=== PATIENT | female | born 1960 | race Caucasian/White ===

== ENCOUNTER 2019-08-20 16:36 | Emergency (ER) | payer OTHER ==
[~2019-08-20] VITALS: Ht 172.7 cm; Wt 63.5 kg
[~2019-08-20 16:36] MED LIST: AMOX TR-K CLV1 EAC1 PO; BACLOFEN10 MG PO; CELECOXIB200 MG PO; FLONASE ALLERG9.9 ML NAS; FLUOXETINE HCL40 MG PO; HYDROCODON-ACE1 EAC8 PO; LAMOTRIGINE100 MG PO; LORATADINE10 M2 PO; NORCO 7.5-3251 EACH PO; OMEPRAZOLE40 MG PO; QUDEXY XR100 MG PO; SYNTHROID137 MCG PO
[2019-08-20] MEDS ORDERED: LISINOPRIL10 MG PO (16:55)
[2019-08-20] MEDS ORDERED: KEPPRA500 MG PO (18:48)
--- NOTE | 2019-08-21 11:40 | EKG ---
[facility] [address] [place] [address] Signed Normal sinus rhythm Normal ECG When compared with ECG of 12-MAY-2019 11:09, Vent. rate has increased BY 36 BPM Confirmed by JAKUB PEDRO MD ([id number]) on 08/21/2019 11:40:19 AM Electronically Signed By: JAKUB PEDRO MD 08/21/19 1140 PATIENT NAME: CHICA MALDONADO Electrocardiogram DATE OF : 64 PHYSICIAN: JAKUB PEDRO MD REPORT #: [id number] REPORT IS CONFIDENTIAL AND NOT TO BE RELEASED WITHOUT AUTHORIZATION
== END 2019-08-20 19:15 | disposition home or self-care (01) ==
LOC: ED 16:36
DX: R56.9 Unspecified convulsions (principal); E03.9 Hypothyroidism, unspecified; F32.9 Major depressive disorder, single episode, unspecified; F41.9 Anxiety disorder, unspecified; K21.9 Gastro-esophageal reflux disease without esophagitis; G43.909 Migraine, unspecified, not intractable, without status migrainosus; Z88.6 Allergy status to analgesic agent; Z79.899 Other long term (current) drug therapy
CPT/HCPCS: 70450; 80053; 81001; 83735; 85025; 93005; 93010; 99285-25

== ENCOUNTER 2020-09-10 15:22 | Emergency (ER) | payer OTHER ==
[~2020-09-10] VITALS: Ht 172.7 cm; Wt 65.8 kg
[~2020-09-10 15:22] MED LIST changes: +KEPPRA500 MG PO; +LISINOPRIL10 MG PO
[2020-09-10] MEDS ORDERED: LEVOTHYROXINE112 MCG PO (15:51)
[2020-09-10] MEDS ORDERED: LORATADINE10 MG PO (15:53)
[2020-09-10] MEDS ORDERED: HYDROXYZINE HCL25 MG PO (21:02)
--- NOTE | 2020-09-14 08:47 | EKG ---
[facility] [address] [facility] [place] [address] Signed Normal sinus rhythm Normal ECG When compared with ECG of 20-AUG-2019 16:50, No significant change was found Confirmed by JAKUB PEDRO MD ([id number]) on 09/14/2020 8:47:18 AM Electronically Signed By: JAKUB PEDRO MD 09/14/20 0847 PATIENT NAME: CHICA MALDONADO Electrocardiogram DATE OF : 64 PHYSICIAN: JAKUB PEDRO MD REPORT #: [id number] REPORT IS CONFIDENTIAL AND NOT TO BE RELEASED WITHOUT AUTHORIZATION
== END 2020-09-10 21:50 | disposition home or self-care (01) ==
LOC: ED 15:22
DX: K21.9 Gastro-esophageal reflux disease without esophagitis (principal); F41.9 Anxiety disorder, unspecified; E03.9 Hypothyroidism, unspecified; Z88.1 Allergy status to other antibiotic agents; Z88.5 Allergy status to narcotic agent; Z79.899 Other long term (current) drug therapy
CPT/HCPCS: 71045; 80053; 81001; 83735; 84484; 85025; 93005; 93010; 96374; 96376; 99285-25; J2060; J7030

== ENCOUNTER 2020-10-17 20:04 | Emergency (ER) | payer OTHER ==
[~2020-10-17] VITALS: Ht 172.7 cm; Wt 65.8 kg
[~2020-10-17 20:04] MED LIST changes: +HYDROXYZINE HCL25 MG PO; +LEVOTHYROXINE112 MCG PO; +LORATADINE10 MG PO
[2020-10-17] MEDS ORDERED: ALPRAZOLAM0.5 MG PO (20:17)
--- NOTE | 2020-10-18 20:15 | EKG ---
[facility] [address] [facility] [place], [place] [address] Signed Normal sinus rhythm Normal ECG When compared with ECG of 10-SEP-2020 15:42, No significant change was found Confirmed by TIA HORNE DO ([id number]) on 10/18/2020 8:15:11 PM Electronically Signed By: TIA HORNE DO 10/18/202014 PATIENT NAME: CHICA MALDONADO Electrocardiogram DATE OF : 64 PHYSICIAN: TIA HORNE DO REPORT #: [id number] REPORT IS CONFIDENTIAL AND NOT TO BE RELEASED WITHOUT AUTHORIZATION
== END 2020-10-18 00:08 | disposition home or self-care (01) ==
LOC: ED 20:04
DX: I10 Essential (primary) hypertension (principal); F41.9 Anxiety disorder, unspecified; Z20.822 Contact with and (suspected) exposure to COVID-19; E03.9 Hypothyroidism, unspecified; G43.909 Migraine, unspecified, not intractable, without status migrainosus; K21.9 Gastro-esophageal reflux disease without esophagitis; Z88.1 Allergy status to other antibiotic agents; Z88.5 Allergy status to narcotic agent; Z79.899 Other long term (current) drug therapy
CPT/HCPCS: 70450; 80053; 81001; 83735; 84484; 85025; 93005; 93010; 96374; 99284-25; C9803; J2060; U0003

== ENCOUNTER 2022-02-14 10:20 | Inpatient (IN) | payer OTHER ==
[~2022-02-14] VITALS: Ht 172.7 cm; Wt 74.1 kg
[~2022-02-14 10:20] MED LIST changes: +ALPRAZOLAM0.5 MG PO
[2022-02-14] MEDS ORDERED: DIAZEPAM2 MG PO (10:46)
--- NOTE | 2022-02-14 17:05 | NUR ---
BEDSIDE REPORT RECIEVED, CARE OF PATIENT ASSUMED AT THIS TIME.
--- NOTE | 2022-02-14 17:45 | NUR ---
ADMISSION ASSESSMENTS COMPLETED. PT TAKEN OFF LEVOPHED DRIP UPON ARRIVAL AND PROPER FITTING BLOOD PRESSURE CUFF IN PLACE. PT BLOOD PRESSURES BETWEEN 90-130 SYSTOLICALLY. PTS HEART RATE DOWN INTO THE 40S UPON ARRIVAL. WITH REST HR BACK UP TO 65 IN A SINUS RHYTHM. PTS LUNGS ARE CLEAR AND DIM. SPO2 = 93% ON ROOM AIR. PT COMPLAINS OF SEVERE NECK PAIN AND A HEADACHE THAT IS SOMEWHAT RELIEVED WITH TYLENOL. DISTAL PULSES STRONG. BOWEL TONES ACTIVE. PT DENIES NAUSEA, PAIN OR DISCOMFORT. SKIN INTACT.
--- NOTE | 2022-02-14 18:12 | NUR ---
DR ROBLERO UPDATED ON PT ASSESSMENT FINDINGS. HEAD CT ORDERED AT THIS TIME. PT REMAINS OFF LEVOPHED DRIP WITH MAPS WNL. IV FLUIDS INFUSING. PT EATING DINNER AT THIS TIME.
--- NOTE | 2022-02-14 18:50 | NUR ---
PT DOWN TO CT AND BACK. WELL TOLERATED. PT NOW RETING IN BED. HEART RATE IN THE 70S. PT UP TO [facility] TO HAVE BOWEL MOVEMENT AND VOID. VOIDED 500 MLS AND HAD A MEDIUM SOFT BM. BACK IN BED. CALL LIGHT WITHIN REACH. WILL CONTINUE TO MONITOR.
--- NOTE | 2022-02-14 20:15 | NUR ---
RN IN ROOM TO ASSESS PT - PT AWAKE WATCHING TV WITH AT BEDSIDE. PT STATES HER HEADACHE HAS IMPROVED. SHE COMPLAINS OF GENERAL UNWELL FEELING. NON PRODUCTIVE COUGH NOTED, SPO2 STABLE ON ROOM AIR. NEURO ASSESSMENT NEGATIVE FOR ACUTE FINDINGS.
--- NOTE | 2022-02-14 21:30 | NUR ---
WARM BLANKET PROVIDED TO PT PER REQUEST - PT DENIES FURTHER NEEDS. CT RESULTS DISCUSSED WITH PT AND , EDUCATED ON MD ROUNDING PATTERN, ALL OTHER QUESTIONS ANSWERED.
--- NOTE | 2022-02-14 22:39 | NUR ---
RN IN ROOM TO ROUND ON PT - PT REPOSISTIONED TO ASSESS RR AND SPO2 ALARMS - QUICKLY WNL ONCE REPOSISITONED.
--- NOTE | 2022-02-14 23:29 | NUR ---
Assisted pt to bedside commode. Pt is unsteady with ambulation. Voided x1. Call light within reach.
--- NOTE | 2022-02-14 23:48 | NUR ---
NEW BAG OF IV FLUIDS HUNG. PT IS A/O, RESPIRATIONS EVEN AND REGULAR. RT AT BEDSIDE. CALL LIGHT WITHIN REACH.
--- NOTE | 2022-02-15 | NUR ---
RN IN ROOM TO ASSESS PT - LUNGS SOUNDS CLEAR THROUGHOUT AFTER NEB TX. PT REMAINS ON ROOM AIR WITH ADEQUATE SPO2. BP REMAINS SOFT WITHOUT SYMPTOMS. WILL CONTINUE TO MONITOR.
--- NOTE | 2022-02-15 01:11 | NUR ---
RN ROUNDING ON PT - RESTING IN BED ON RIGHT SIDE, RR EVEN AND UNLABORED. SPO2 95% ON RA. CALL LIGHT AT SIDE.
--- NOTE | 2022-02-15 01:42 | NUR ---
RN IN ROOM TO ASSIST PT TO BSC. STANDBY ASSIST FOR PIVOT TRANSFER. PT ASYMPTOMATIC WITH THIS DESPITE CURENT BP OF 91/53. 800ML VOID OF CLEAR STRAW URINE WITH ODOR. PT BACK TO BED WITH WARM BLANKETS.
--- NOTE | 2022-02-15 02:15 | NUR ---
RN IN ROOM TO ANSWER CALL LIGHT - PT REPORTS INABILITY TO STOP SHIVERING AFTER USING BSC EARLIER. PT STATES SHE DOES NOT FEEL COLD. AFEBRILE. ASSESSMENT OTHERWISE BENIGN. TYELENOL ADMINISTERED FOR 7/10 HEADACHE AND NECK ACHE. REPOSISTIONED PT TO RIGHT SIDE AND WARM BLANKETS PROVIDED. WILL CONTINUE TO MONITOR.
--- NOTE | 2022-02-15 03:20 | NUR ---
RN ROUNDING ON PT - PT RESTING ON SIDE WITH EYES CLOSED. CHILL/SHIVERING STOPPED. CALL LIGHT IN REACH. VS WNL.
--- NOTE | 2022-02-15 04:30 | NUR ---
RN IN ROOM TO ASSESS PT - LUNGS REMAIN CLEAR. BP REMAINS SOFT WITHOUT SYMPTOMS. PT UP TO BSC, PIVOT TRANSFER AND STANDBY ASSIST. PT REPORTS PAIN HAS IMPROVED AND CHILLS RESOLVED.
--- NOTE | 2022-02-15 06:19 | NUR ---
RN IN ROOM TO ADMINISTER SCHEDULED MEDICATION. PT WAKES EASILY. DENIES NEEDS AT THIS TIME. I/O RECORDED.
--- NOTE | 2022-02-15 07:01 | EKG ---
[facility] [address] [facility] [place] [address] Signed Normal sinus rhythm Nonspecific ST and T wave abnormality Abnormal ECG When compared with ECG of 17-OCT-2020 20:53, Non-specific change in ST segment in Inferior leads Non-specific change in ST segment in Anterolateral leads Nonspecific T wave abnormality now evident in Inferior leads Nonspecific T wave abnormality now evident in Anterolateral leads Confirmed by MAGGIE ROBLERO MD ([id number]) on 02/15/2022 7:01:19 AM Electronically Signed By: MAGGIE ROBLERO MD 02/15/22 0701 PATIENT NAME: CHICA MALDONADO Electrocardiogram DATE OF : 64 PHYSICIAN: MAGGIE ROBLERO MD REPORT #: [id number] REPORT IS CONFIDENTIAL AND NOT TO BE RELEASED WITHOUT AUTHORIZATION
--- NOTE | 2022-02-15 07:48 | NUR ---
DISCUSSED PLAN OF CARE WITH DR ROBLERO AND FAMILY AT THIS TIME. PLAN ESTABLISHED TO CHECK ORTHOSTATIC BLOOD PRESSURES ON PT. POSSIBILITY THAT PT WILL GO HOME LATER THIS MORNING.
--- NOTE | 2022-02-15 08:26 | NUR ---
ASSESSMENT COMPLETED. PT ALERT AND ORIENTED. ANSWERING ALL QUESTIONS APPROPRIATELY. HEART RATE INTHE 70S. ORTHOSTATIC BLOOD PRESSURES COMPLETED. PT NOT DIZZY WITH STANDING BUT REPORTS SOME WEKANESS. HEART RATE REMAINED WNL DID BLOOD PRESSURE. PT NOW EATING BREAKFAST. IV ABX INFUSING. CALL LIGHT WITHIN REACH. WILL CONTINUE TO MONITOR.
--- NOTE | 2022-02-15 08:44 | NUR ---
PT UP TO BSC. STANDY BY ASSIST ONLY REQUIRED. PT DENIES DIZZINESS OR DISCOMFORT. PT NOW SITTING AT SIDE OF BED. AT BEDSIDE. CALL LIGHT WITHIN REACH. WILL CONTINUE TO MONITOR
[2022-02-15] MEDS ORDERED: OSELTAMIVIR PHO30 MG PO (09:04)
[2022-02-15] MEDS ORDERED: CHOLESTYRAMINE P4 GM PO (09:05)
[2022-02-15] MEDS ORDERED: CEPHALEXIN500 MG PO (09:06)
--- NOTE | 2022-02-15 10:00 | NUR ---
PT RESTING IN ROOM. AT BEDSIDE. DENIES ANY NEEDS AT THIS TIME.
--- NOTE | 2022-02-15 12:00 | NUR ---
PHARMACIST BEHZAD IN ROOM TO GO OVER MEDICATION CHANGES AND PRESCRIPTIONS FOR DISCHARGE.
--- NOTE | 2022-02-15 12:15 | NUR ---
PT PROVIDED ALL DISCHARGE INSTRUCTIONS. AT BEDSIDE AT TIME OF DISCHARGE. ALL QUESTIONS ANSWERED. PT GIVEN A WHEELCHAIR RIDE OUT OF CCU TO AWAITING VEHICLE. ALL BELONGINGS WITH PT AT TIME OF DISCHARGE.
== END 2022-02-15 12:20 | disposition home or self-care (01) | DRG 871 ==
LOC: ED 10:20 → CCU 16:14
PROVIDERS: ADMIT Internal Medicine; ATTEND Internal Medicine
PROC: 3E03329 Introduction of Other Anti-infective into Peripheral Vein, Percutaneous Approach (ICD-10-PCS; principal; 2022-02-14)
PROC: 3E033XZ Introduction of Vasopressor into Peripheral Vein, Percutaneous Approach (ICD-10-PCS; 2022-02-14)
DX: A41.51 Sepsis due to Escherichia coli [E. coli] (principal); R65.21 Severe sepsis with septic shock; N39.0 Urinary tract infection, site not specified; Z20.822 Contact with and (suspected) exposure to COVID-19; A41.89 Other specified sepsis; G89.29 Other chronic pain; M54.9 Dorsalgia, unspecified; E03.9 Hypothyroidism, unspecified; F32.A Depression, unspecified; F41.9 Anxiety disorder, unspecified; K21.9 Gastro-esophageal reflux disease without esophagitis; G43.909 Migraine, unspecified, not intractable, without status migrainosus; Z90.710 Acquired absence of both cervix and uterus; Z98.51 Tubal ligation status; Z88.1 Allergy status to other antibiotic agents; Z88.6 Allergy status to analgesic agent; Z79.899 Other long term (current) drug therapy
CPT/HCPCS: 36415; 51701; 70450; 71045; 80048; 80053; 81001; 83605; 85025; 85610; 85730; 87088; 87186; 87502; 93005; 93010; 94640; 99285-25; A9270; C9803; J0696; J1650; J2405; J7030; J7121; U0003

== ENCOUNTER 2022-07-16 16:20 | Emergency (ER) | payer OTHER ==
[~2022-07-16] VITALS: Ht 172.7 cm; Wt 73.9 kg
[~2022-07-16 16:20] MED LIST changes: +CEPHALEXIN500 MG PO; +CHOLESTYRAMINE P4 GM PO; +DIAZEPAM2 MG PO; +OSELTAMIVIR PHO30 MG PO
--- OUTSIDE RECORDS SUMMARY | 2022-07-16 16:22 | XMS ---
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 [facility] VISIT COUNT (12 MO.) Trent Barr TOTAL 2 NOTE: Visits indicate total known visits. ED/UCC VISIT TRACKING (12 MO.) 07/16/2022 16:21 [facility] TYPE: Emergency COMPLAINT: - CHEST PAIN 02/14/2022 10:22 [facility] TYPE: Emergency COMPLAINT: - LOW B/P, FEVER, COUGH, HEADACHE, NECK/BACK PAIN INPATIENT VISIT TRACKING (12 MO.) 02/14/2022 16:14 [facility] TYPE: Critical Care COMPLAINT: - SEPSIS, INFLUENZA DIAGNOSES: - Acquired absence of both cervix and uterus - Acquired absence of both cervix and uterus - Allergy status to analgesic agent - Allergy status to analgesic agent - Allergy status to other antibiotic agents - Allergy status to other antibiotic agents - Anxiety disorder, unspecified - Anxiety disorder, unspecified - Contact with and (suspected) exposure to COVID-19 - Contact with and (suspected) exposure to COVID-19 - Depression, unspecified - Depression, unspecified - Dorsalgia, unspecified - Dorsalgia, unspecified - Gastro-esophageal reflux disease without esophagitis - Gastro-esophageal reflux disease without esophagitis - Hypotension, unspecified - Hypothyroidism, unspecified - Hypothyroidism, unspecified - Migraine, unspecified, not intractable, without status migrainosus - Migraine, unspecified, not intractable, without status migrainosus - Other chronic pain - Other chronic pain - Other intermediate accountant (current) drug therapy - Other intermediate (current) drug therapy - Other specified sepsis - Other specified sepsis - Sepsis due to Escherichia coli [E. coli] - Sepsis due to Escherichia coli [E. coli] - Sepsis, unspecified organism - Severe sepsis with septic shock - Tubal ligation status - Tubal ligation status - Urinary tract infection, site not specified - Urinary tract infection, site not specified [email or web address]
[2022-07-16] MEDS ORDERED: LOMOTIL TABLET1 EACH PO (18:38)
[2022-07-16 19:31] VITALS: BP 125/61
--- NOTE | 2022-07-17 21:34 | EKG ---
[facility] [address] [facility] [place] [address] Signed Normal sinus rhythm Normal ECG When compared with ECG of 14-FEB-2022 11:09, Non-specific change in ST segment in Inferior leads Non-specific change in ST segment in Anterolateral leads Nonspecific T wave abnormality no longer evident in Inferior leads Nonspecific T wave abnormality no longer evident in Anterolateral leads Confirmed by MAGGIE ROBLERO MD ([id number]) on 07/17/2022 9:33:49 PM Electronically Signed By: MAGGIE ROBLERO MD 07/17/22 2134 PATIENT NAME: CHICA MALDONADO Electrocardiogram DATE OF : 64 PHYSICIAN: MAGGIE ROBLERO MD REPORT #: [id number] REPORT IS CONFIDENTIAL AND NOT TO BE RELEASED WITHOUT AUTHORIZATION
== END 2022-07-16 19:37 | disposition home or self-care (01) ==
LOC: ED 16:20
DX: R07.9 Chest pain, unspecified (principal); R19.7 Diarrhea, unspecified; R63.4 Abnormal weight loss; E03.9 Hypothyroidism, unspecified; G43.909 Migraine, unspecified, not intractable, without status migrainosus; Z88.5 Allergy status to narcotic agent; Z88.1 Allergy status to other antibiotic agents; Z79.899 Other long term (current) drug therapy
CPT/HCPCS: 36415; 71045; 72040; 72070; 80053; 81001; 83735; 84484; 85025; 87088; 93005; 93010; 99285-25; J7030

== ENCOUNTER 2023-02-19 07:05 | Day surgery (SDC) | payer OTHER ==
[2023-02-12 16:41] VITALS: BP 109/65
[~2023-02-19] VITALS: Ht 172.7 cm; Wt 56.0 kg
[~2023-02-19 07:05] MED LIST changes: +LOMOTIL TABLET1 EACH PO
[2023-02-19 07:40] VITALS: BP 105/63
[2023-02-19 09:14] VITALS: BP 108/53
--- NOTE | 2023-02-19 09:26 | NUR ---
02/19/23 0926 Jennifer Rico 4088 PT ARRIVED TO PACU ON 6L VIA MASK, PT WAKES EASILY AND IS REORIENTED TO PACU. PT DENIES PAIN AND NAUSEA. PT ENCOURAGED TO PASS GAS. 0900 O2 REMOVED. PLAN OF CARE DISCUSSED. 0915 HOB INCREASED AND PT SIPPING WATER WITH NO CONCERNS. VSS. 0925 DC INSTRUCTIONS GIVEN AND AT BEDSIDE HELPING PT DRESS. ALL QUESTIONS ANSWERED.
--- NOTE | 2023-02-19 11:01 | OR ---
[facility] [place] [facility] [address] [place], [place] [address] Signed DATE OF OPERATION: 02/19/2023 SURGEON: Shoshana Moore MD PREOPERATIVE DIAGNOSES: 1. Screening. 2. Irritable bowel syndrome with diarrhea. 3. Sister with Crohn disease. 4. Internal and external hemorrhoids. POSTOPERATIVE DIAGNOSES: 1. Moderate internal and external hemorrhoids. 2. Minimal sigmoid diverticulosis. PROCEDURE: Colonoscopy without biopsy. ESTIMATED BLOOD LOSS: None. INDICATIONS: Stacie is a 63-year-old female, asked to see me for a followup screening colonoscopy. She had a stroke a few years ago. It has affected left side of her body. She has had a dilated right pupil for many years. She told me that is nothing new. She describes irritable bowel syndrome back to her teenagers with diarrhea. She told me her sister has Crohn disease. I helped Stacie with her colonoscopy in 2011 at the age of 51. She had internal and external hemorrhoids. There was no Crohn disease. She had a CT scan too, that did not reveal any Crohn disease. In 2017, she had gone to see Dr. Gemma Meza for upper endoscopy at the age of 56. Again, she was having generalized abdominal pain and diarrhea. She was said to have a small hiatal hernia with a little mild gastritis. She manages that with Imodium and a little cholestyramine. She always comes with her , particularly since her stroke. She tells me there is no family history of colon cancer or polyps. In the office, I gave them a pamphlet on colonoscopy. We reviewed the nature of the test. There is risk including, but not limited to gas bloating, crampy abdominal pain, bleeding, perforation requiring surgery, and missed diagnosis. She also understands the need for monitored anesthesia care given her stroke under basically nonfunctioning left upper extremity. She had expressed understanding and wished to proceed. PROCEDURE IN DETAIL: Electronically Signed By: SHOSHANA MOORE MD 02/19/23 1101 PATIENT NAME: CHICA MALDONADO OPERATIVE REPORT DATE OF : 64 REPORT #: [id number] PHYSICIAN: SHOSHANA MOORE MD PCP: PAYAL DELCID PA-C REPORT IS CONFIDENTIAL AND NOT TO BE RELEASED WITHOUT AUTHORIZATION [facility] [place] [facility] [address] [place], [place] [address] Signed Stacie was taken into our endoscopy suite and placed in the left lateral decubitus position. She was given monitored anesthesia care with propofol infusion per our nurse machine tool mechanic. A digital rectal exam was performed and once again, she has small circumferential external hemorrhoids. She has good sphincter tone. There are no masses. The adult colonoscope was introduced and advanced all the way around into the cecum under direct visualization of camera without difficulty. Her prep was quite good. We could easily see the appendiceal orifice and ileocecal valve. The scope was then slowly withdrawn. We thought we saw just a few tiny diverticula in the sigmoid colon. There were no polyps. The rectum was unremarkable. Upon retroflexion of scope, she once again has moderate internal hemorrhoid columns. After this, the gas was suctioned out. The colonoscope removed. Stacie tolerated the procedure quite well. RECOMMENDATIONS: Stacie can return in 10 years for repeat screening colonoscopy so long as her health holds up. Shoshana Moore MD ALB/MODL /[id number] cc: Payal Moore MD Copies: SHOSHANA MOORE MD ~ Electronically Signed By: SHOSHANA MOORE MD 02/19/23 1101 PATIENT NAME: CHICA MALDONADO OPERATIVE REPORT DATE OF : 64 REPORT #: [id number] PHYSICIAN: SHOSHANA MOORE MD PCP: PAYAL DELCID PA-C REPORT IS CONFIDENTIAL AND NOT TO BE RELEASED WITHOUT AUTHORIZATION
== END 2023-02-19 09:33 | disposition home or self-care (01) ==
LOC: DS 07:05 → OPS 07:05 → DS 08:15 → OPS 09:33
PROVIDERS: ATTEND Colon & Rectal Surgery
PROC: 0DJD8ZZ Inspection of Lower Intestinal Tract, Via Natural or Artificial Opening Endoscopic (ICD-10-PCS; principal; 2023-02-19 08:15)
DX: Z12.11 Encounter for screening for malignant neoplasm of colon (principal); K57.30 Diverticulosis of large intestine without perforation or abscess without bleeding; K64.4 Residual hemorrhoidal skin tags; K64.8 Other hemorrhoids; K58.0 Irritable bowel syndrome with diarrhea; F41.9 Anxiety disorder, unspecified; F32.9 Major depressive disorder, single episode, unspecified; I12.9 Hypertensive chronic kidney disease with stage 1 through stage 4 chronic kidney disease, or unspecified chronic kidney disease; N18.31 Chronic kidney disease, stage 3a; K21.9 Gastro-esophageal reflux disease without esophagitis; E78.5 Hyperlipidemia, unspecified; E03.9 Hypothyroidism, unspecified; Z98.51 Tubal ligation status; Z90.710 Acquired absence of both cervix and uterus; Z90.49 Acquired absence of other specified parts of digestive tract; Z88.8 Allergy status to other drugs, medicaments and biological substances; Z79.890 Hormone replacement therapy; Z79.899 Other long term (current) drug therapy
CPT/HCPCS: 00812; J2001; J2704

== ENCOUNTER 2024-08-15 08:16 | Emergency (ER) | payer OTHER ==
[~2024-08-15] VITALS: Ht 172.7 cm; Wt 53.2 kg
[2024-08-15] MEDS ORDERED: HYDROCODONE/APAP 10/325 1 TAB PO ONE (09:45)
[2024-08-15] MEDS ORDERED: HYDROCODON-ACE1 EA10 PO (10:06)
[2024-08-15 10:35] VITALS: BP 134/70
== END 2024-08-15 10:35 | disposition home or self-care (01) ==
LOC: ED 08:16
DX: S80.02XA Contusion of left knee, initial encounter (principal); M25.512 Pain in left shoulder; Z88.0 Allergy status to penicillin; Z79.890 Hormone replacement therapy; Z79.899 Other long term (current) drug therapy; Z88.8 Allergy status to other drugs, medicaments and biological substances; Z88.5 Allergy status to narcotic agent; W19.XXXA Unspecified fall, initial encounter
CPT/HCPCS: 73030; 73560; 99284; A9270